=== PATIENT | male | born 1990 | race Two or more races ===

== ENCOUNTER 2019-06-23 16:44 | Emergency (ER) | payer MEDICARE, OTHER ==
[~2019-06-23] VITALS: Ht 177.8 cm; Wt 68.1 kg
[2019-06-23 20:45] VITALS: BP 143/80
== END 2019-06-23 20:49 | disposition home or self-care (01) ==
LOC: EDSEX 16:44 → ED 20:05
DX: G40.419 Other generalized epilepsy and epileptic syndromes, intractable, without status epilepticus (principal)
CPT/HCPCS: 36415; 80048; 80156; 80307; 82040; 85025; 96365; 96375; 99283; J1885; J1953; J2060; J2765

== ENCOUNTER 2021-06-20 10:00 | Emergency (ER) | payer BC ==
[~2021-06-20] VITALS: Ht 177.8 cm; Wt 75.4 kg
[~2021-06-20 10:00] MED LIST: OXCA600T10 PO
[2021-06-20] MEDS ORDERED: L.E.T SOLUTION TP ONE ×2 (11:08→11:30)
--- NOTE | 2021-06-20 11:11 | NUR ---
LET ON AT 1110
[2021-06-20] MEDS ORDERED: LIDOCAINE-MPF 1%, 5ML ONE (11:12)
[2021-06-20] MEDS ORDERED: HYDROcodone/APAP 5/325 TABLET ONE (11:13)
[2021-06-20] MEDS ORDERED: LIDOCAINE-MPF 1%, 5ML INFIL ONE (11:30)
[2021-06-20] MEDS ORDERED: HYDROcodone/APAP 5/325 TABLET PO ONE (11:30)
[2021-06-20 13:13] VITALS: BP 135/89
== END 2021-06-20 13:34 | disposition home or self-care (01) ==
LOC: ED 13:20
DX: S01.81XA Laceration without foreign body of other part of head, initial encounter (principal); F17.200 Nicotine dependence, unspecified, uncomplicated; X58.XXXA Exposure to other specified factors, initial encounter; Y93.89 Activity, other specified; Y92.009 Unspecified place in unspecified non-institutional (private) residence as the place of occurrence of the external cause; Y99.8 Other external cause status
CPT/HCPCS: 12011; 99283

== ENCOUNTER 2021-07-15 16:22 | Emergency (ER) | payer MEDICAID ==
[~2021-07-15] VITALS: Ht 177.8 cm; Wt 73.0 kg
[2021-07-15 16:39] VITALS: BP 147/81
[2021-07-15] MEDS ORDERED: LIDOCAINE 1%, 10ML INFIL ONE (17:00)
--- NOTE | 2021-07-15 21:27 | NUR ---
[id number] WHEN CALLED FOR ROOM
--- NOTE | 2021-07-16 01:18 | NUR ---
NA X 2
--- NOTE | 2021-07-16 01:54 | NUR ---
[id number]
== END 2021-07-16 01:57 | disposition left against medical advice (07) ==
LOC: ED 17:00
DX: L02.416 Cutaneous abscess of left lower limb (principal)
CPT/HCPCS: 99281